=== PATIENT | female | born 1965 | race Caucasian/White ===

== ENCOUNTER 2021-10-13 12:57 | Outpatient (REF) | payer OTHER, SELFPAY ==
--- NOTE | ~2021-10-13 | FL_ITS ---
EXAMINATION: XR FLUOROSCOPY WITH IMAGES CLINICAL INFORMATION: M54.16 - Radiculopathy, lumbar region COMPARISON: None. TECHNIQUE: Fluoroscopy performed by Dr. Audie Ferrera. Fluoroscopy time: 0.7 minutes. Cumulative Dose: 23.8 mGy. DAP: 6.50 Gy-cm2. Images: 4. FINDINGS: There are spinal needles at 2 adjacent lower right outer neural foramen, exact level difficult to define as there may be a transitional vertebrae at lumbosacral junction. There is contrast seen in the respective nerve sheaths. There is also epidural extension of the contrast. No visible vascular communication. FL/FL guidance in treatment room IMPRESSION: Fluoroscopy for pain management procedures.
== END 2021-10-13 12:58 | disposition home or self-care (01) ==
LOC: HO.RADIR 12:57
PROVIDERS: Visit Provider Anesthesiology
DX: M54.16 Radiculopathy, lumbar region (principal); M51.36 Other intervertebral disc degeneration, lumbar region
CPT/HCPCS: 64483; 64484; J3300

== ENCOUNTER → 2022-06-21 13:13 | Outpatient (BNVA) | payer OTHER, SELFPAY | PROVIDERS: PCP Internal Medicine; Visit Provider Anesthesiology | DX: Z13.89 Encounter for screening for other disorder (principal) ==

== ENCOUNTER 2022-07-13 06:00 | Outpatient (REF) | payer OTHER, SELFPAY ==
--- NOTE | ~2022-07-13 | FL_ITS ---
EXAMINATION: XR FLUOROSCOPY WITH IMAGES CLINICAL INFORMATION: Lumbar radiculopathy COMPARISON: None available. TECHNIQUE: Fluoroscopy Supervised By: Dr. Audie Ferrera. Fluoroscopy Time: 0.8. Cumulative Dose: 11 mGy. DAP: 0.2 Gycm2. Images: 3. FINDINGS: Initial image demonstrates needle placement and contrast injection adjacent to the right lateral L3 and L4 vertebral bodies. FL/FL guidance in treatment room IMPRESSION: Fluoroscopic guidance for pain management procedure.
== END 2022-07-13 06:01 | disposition home or self-care (01) ==
LOC: CF 06:00
PROVIDERS: Visit Provider Anesthesiology
DX: M54.16 Radiculopathy, lumbar region (principal); M51.36 Other intervertebral disc degeneration, lumbar region
CPT/HCPCS: 64483; 64484; J3301; Q9965

== ENCOUNTER 2025-01-02 13:03 | Outpatient (AMB) | payer MEDICAID, SELFPAY ==
[2025-01-02 13:05] VITALS: BP 141/80; PULSE 75; RESP 16; O2SAT 98; BMI 22.1
--- NOTE | 2025-01-02 13:05 | MHC.OFFVIS ---
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 She complains on pain in the projection of the right sacroiliac joint with radiation of the pain to the right thigh and the right lower leg. She reports difficulty sleeping. She was in my care in the past and received transforaminal epidural steroid injection in October of 2021 with very good results. Since 2022 she was not available for the follow-up. My physical exam see as below. I will schedule her for diagnostic right sacroiliac joint injection. Prior:? History of treatment of the radicular pain in the right lower extremity.? the pain starts in the middle of the lower back and radiates all the way down to the right lower extremity to the 1st toe.? She received epidural steroid injections in the past in the office of Dr. Blackmon and she received facet joint injections in [facility] She reported no significant help from these procedures.? In my office she was examined and at that time signs of sacroiliitis were found more prominent and she was offered to go for sacroiliac joint injection.? She received therapeutic sacroiliac joint injection with 70% pain relief.? However she reported that to her pain relief lasted only for 2 and half weeks.? The MRI results of this patient's are dictated as below.? Review of Systems Const All systems reviewed & are unremarkable except as noted in HPI and below ENT Reports Normal hearing present Neuro Reports Normal hearing present, Denies Abnormal speech present, Denies confusion and Denies Sensory deficit (Neuro) Psych Denies confusion Physical Exam Const General: No confusion Orientation/consciousness: No confusion Eyes General: appearance normal, both eyes and all related structures Pupils: Equal, round and reactive pupils present EOM: EOMs intact bilaterally Neck Neck: Yes full ROM Chest Chest palpation & inspection: normal inspection of the chest Resp Effort & Inspection: normal respiratory effort, able to speak in complete sentences, normal respiratory pattern, no audible wheezes and no cough Cardio Jugular venous distension: no JVD GI Inspection: Yes normal to inspection Back/Spine/Pelvis Other: [place] test on the right is negative. However Pelvic compression and pelvic destruction test are both positive on the right. [place] test is positive on the right. SLR this time is equivocal for pain increase in the right leg. [place] test this time is negative. Neuro General: No confusion Cranial nerves: Yes Equal, round and reactive pupils present and Yes Normal hearing present Speech: No Abnormal speech present Gait exam (Neuro): Normal gait present Motor exam (neuro): 5/5 motor strength present throughout Sensory Exam: No Sensory deficit (Neuro) Extrem General: No pedal edema Psych Speech and movement: Normal speech and movement present Affect: normal affect Attitude: cooperative Thought process: Normal thought process present Thought content: Normal thought content present Insight: Good insight present (Psych) Judgement: Good judgement present (Psych) Assessment & Plan Assessment & Plan (1) Disc degeneration, lumbar: Code(s): M51.36 - Other intervertebral disc degeneration, lumbar region Category: Medical (2) Lumbosacral radiculopathy due to degenerative joint disease of spine: Code(s): M47.27 - Other spondylosis with radiculopathy, lumbosacral region Category: Medical (3) Lumbar radiculopathy: Code(s): M54.16 - Radiculopathy, lumbar region Category: Medical (4) Sacroiliitis: Code(s): M46.1 - Sacroiliitis, not elsewhere classified Category: Medical (5) Somatic dysfunction of right sacroiliac joint: Code(s): M99.04 - Segmental and somatic dysfunction of sacral region Category: Medical Plan Very good results TFESI on the right L3-L4 and L4-5. That was in 2021 2022. Now patient presents with new pain. It seemed to be that physical exam positive for sacroiliitis. I will schedule her for diagnostic right sacroiliac joint injection. I will see her few days after the procedure. Medications: New baclofen 10 mg PO TID 90 tabs 6RF 30 days Coding Level of Care Code Est Pt Level 3 (42255) Diagnoses Disc degeneration, lumbar M51.36 Lumbosacral radiculopathy due to degenerative joint disease of spine M47.27 Lumbar radiculopathy M54.16 Sacroiliitis M46.1 Somatic dysfunction of right sacroiliac joint M99.04
== END 2025-01-02 13:18 | disposition home or self-care (01) ==
LOC: HO.PMC 13:04
PROVIDERS: PCP Internal Medicine; Visit Provider Anesthesiology
DX: M51.369 Other intervertebral disc degeneration, lumbar region without mention of lumbar back pain or lower extremity pain (principal); M47.27 Other spondylosis with radiculopathy, lumbosacral region; M54.16 Radiculopathy, lumbar region; M46.1 Sacroiliitis, not elsewhere classified; M99.04 Segmental and somatic dysfunction of sacral region
CPT/HCPCS: 99213

== ENCOUNTER → 2025-01-02 13:03 | Outpatient (BNVA) | payer MEDICAID, SELFPAY | PROVIDERS: PCP Internal Medicine; Visit Provider Anesthesiology | DX: M99.04 Segmental and somatic dysfunction of sacral region (principal); M51.360 Other intervertebral disc degeneration, lumbar region with discogenic back pain only; M47.27 Other spondylosis with radiculopathy, lumbosacral region; M46.1 Sacroiliitis, not elsewhere classified | CPT/HCPCS: 99212 ==